=== PATIENT | female | born 1980 | race Two or more races ===

== ENCOUNTER 2020-11-21 08:31 | Emergency (ER) | payer OTHER ==
[~2020-11-21] VITALS: Ht 157.5 cm; Wt 67.1 kg
[2020-11-21] MEDS ORDERED: CARAFATE1 GM/10 ML PO (14:32)
[2020-11-21] MEDS ORDERED: PEPCID AC20 MG PO (14:32)
[2020-11-21] MEDS ORDERED: MAALOX MAXIMUM355 ML PO (14:32)
[2020-11-21] MEDS ORDERED: VOLTAREN100 GM TOP (14:32)
== END 2020-11-21 14:37 | disposition home or self-care (01) ==
LOC: ER 08:31
DX: S10.11XA Abrasion of throat, initial encounter (principal); R13.19 Other dysphagia; X58.XXXA Exposure to other specified factors, initial encounter; Y93.89 Activity, other specified; Y92.89 Other specified places as the place of occurrence of the external cause; Y99.8 Other external cause status